=== PATIENT | female | born 1940 | race Caucasian/White ===

== ENCOUNTER 2022-09-14 08:53 | Outpatient (CLI) | payer MEDICARE, SELFPAY ==
[2022-09-14 15:33] LABS: Albumin* 4.7 g/dL (3.3-5.0); Chloride* 99 mmol/L (96-114); Potassium* 4.6 mmol/L (3.6-5.1); Sodium* 135 mmol/L (135-149)
[2022-09-14 15:35] LABS: Creatinine* 0.6 mg/dL (0.5-1.5); Estimated Glomerular Filt Rate 90 ml/min
[2022-09-14 15:36] LABS: Alanine Aminotransferase* 18 U/L (4-35); Alkaline Phosphatase* 95 U/L (40-150); Aspartate Amino Transferase* 24 U/L (12-35); Bilirubin Total* 0.5 mg/dL (0.1-1.5); Blood Urea Nitrogen* 15 mg/dL (7-30); Calcium* 9.6 mg/dL (8.4-10.6); Carbon Dioxide* 28 mmol/L (20-32); Glucose* 114 mg/dL (60-115); Total Protein* 7.5 g/dL (6.0-8.3)
== END 2022-09-14 08:54 | disposition home or self-care (01) ==
PROVIDERS: PCP Emergency Medicine; Visit Provider Emergency Medicine
DX: Z00.00 Encounter for general adult medical examination without abnormal findings (principal); I10 Essential (primary) hypertension; N39.0 Urinary tract infection, site not specified; E11.9 Type 2 diabetes mellitus without complications; Z86.2 Personal history of diseases of the blood and blood-forming organs and certain disorders involving the immune mechanism
CPT/HCPCS: 80053; 82043; 82570

== ENCOUNTER 2023-03-22 08:34 | Outpatient (CLI) | payer MEDICARE, SELFPAY | END 2023-03-22 08:35 | disposition home or self-care (01) | LOC: NFLDREF 03-26 10:55 | PROVIDERS: PCP Emergency Medicine; Referring Provider Emergency Medicine; Visit Provider Emergency Medicine | DX: E78.5 Hyperlipidemia, unspecified (principal); I10 Essential (primary) hypertension; L71.9 Rosacea, unspecified; E11.9 Type 2 diabetes mellitus without complications | CPT/HCPCS: 80061 ==

== ENCOUNTER 2023-09-17 10:19 | Outpatient (CLI) | payer MEDICARE, SELFPAY | END 2023-09-17 10:20 | disposition home or self-care (01) | LOC: NFLDREF 09-19 18:27 | PROVIDERS: PCP Emergency Medicine; Referring Provider Emergency Medicine; Visit Provider Emergency Medicine | DX: Z00.00 Encounter for general adult medical examination without abnormal findings (principal); E11.9 Type 2 diabetes mellitus without complications; E78.5 Hyperlipidemia, unspecified; I10 Essential (primary) hypertension | CPT/HCPCS: 80048; 80061; 82043; 82570 ==

== ENCOUNTER 2024-05-19 08:38 | Outpatient (CLI) | payer MEDICARE, SELFPAY | END 2024-05-19 08:39 | disposition home or self-care (01) | LOC: NFLDREF 05-21 11:30 | PROVIDERS: PCP Emergency Medicine; Referring Provider Emergency Medicine; Visit Provider Emergency Medicine | DX: I10 Essential (primary) hypertension (principal); E11.9 Type 2 diabetes mellitus without complications; Z79.84 Long term (current) use of oral hypoglycemic drugs; Z13.21 Encounter for screening for nutritional disorder | CPT/HCPCS: 80048; 82607 ==

== ENCOUNTER 2024-10-07 08:34 | Outpatient (CLI) | payer MEDICARE, SELFPAY | END 2024-10-07 08:35 | disposition home or self-care (01) | LOC: NFLDREF 10-11 00:38 | PROVIDERS: PCP Emergency Medicine; Referring Provider Emergency Medicine; Visit Provider Emergency Medicine | DX: I10 Essential (primary) hypertension (principal); E78.2 Mixed hyperlipidemia; E11.9 Type 2 diabetes mellitus without complications; N39.0 Urinary tract infection, site not specified | CPT/HCPCS: 80048; 80061; 82043; 82570 ==

== ENCOUNTER 2025-04-06 08:25 | Outpatient (CLI) | payer MEDICARE, SELFPAY | END 2025-04-06 08:26 | disposition home or self-care (01) | LOC: NFLDREF 04-14 23:08 | PROVIDERS: Visit Provider Physician Assistant Medical | DX: Z00.01 Encounter for general adult medical examination with abnormal findings (principal); E78.5 Hyperlipidemia, unspecified; I10 Essential (primary) hypertension | CPT/HCPCS: 80053; 80061 ==

== ENCOUNTER 2025-10-12 11:53 | Outpatient (CLI) | payer MEDICARE, SELFPAY | END 2025-10-12 11:54 | disposition home or self-care (01) | LOC: LKVREF 11:53 | PROVIDERS: PCP Physician Assistant Medical; Visit Provider Physician Assistant Medical | DX: E11.9 Type 2 diabetes mellitus without complications (principal); I10 Essential (primary) hypertension; N39.0 Urinary tract infection, site not specified | CPT/HCPCS: 82043; 82570 ==